=== PATIENT | male | born 1995 | race Caucasian/White ===

== ENCOUNTER 2017-02-02 11:47 | Emergency (ER) | payer SELFPAY ==
[~2017-02-02] VITALS: Ht 165.1 cm; Wt 52.6 kg
--- NOTE | 2017-02-02 12:16 | NUR ---
PT OUT OF ER FOR CT
[2017-02-02 12:36] VITALS: BP 130/92
--- NOTE | 2017-02-02 12:37 | NUR ---
Patient discharged to home in stable conditon. Written and verbal after care instructions given. Patient verbalizes understanding of instructions.
== END 2017-02-02 12:38 | disposition home or self-care (01) ==
LOC: ER 11:50
DX: S06.0X0A Concussion without loss of consciousness, initial encounter (principal); V43.51XA Car driver injured in collision with sport utility vehicle in traffic accident, initial encounter; Y93.89 Activity, other specified; Y92.413 State road as the place of occurrence of the external cause; Y99.8 Other external cause status
CPT/HCPCS: 70450; 99284; A4663